=== PATIENT | female | born 1980 | race Caucasian/White ===

== ENCOUNTER 2020-08-13 06:13 | Day surgery (SDC) | payer OTHER, SELFPAY ==
[2020-08-13] VITALS (7 sets, daily range): BP systolic 108–147; BP diastolic 53–99; PULSE 57–82; RESP 16–17; TEMP 36.2–36.9; O2SAT 96–98; BMI 29.7
--- NOTE | 2020-08-13 06:49 | HO.ANESPROP2 ---
[facility] Social History Social History Advance Directives: No Advance Directives Information Provided: Yes Meds Allergies Allergy/AdvReac Type Severity Reaction Status Date / Time azithromycin [From Zithromax] Allergy Severe Hives Verified 08/13/20 06:47 Exam Exam Date and Time: August 13, 2020 0649 Airway Mallampati Class: II TM Dist: >3cm Neck ROM: Full Assessment and Plan Assessment Anesthesia Assessment: Anesthesia Plan Discussed and Chart Reviewed Final Anesthetic Review NPO: Yes ASA Class: II Final Preanesthetic Review: No Changes in Pt Med Stat, Meds/Allgs Chart Reviewed, Consent Obtained/Reviewed and Anes Risks/Benef Reviewed Patient Risk: Low Procedure Risk: Low Assessment/Block/Sedation in SS: Assess/Block/Sedation-SS Anesthetic Plan Anesthetic Plan: GA Disposition: Standard PACU
--- NOTE | 2020-08-13 07:26 | MHC.SHP ---
Pre-Procedural Eval Section A The patient is an INPATIENT: No Changes since office visit: Yes Changes in Medication and Yes Patient answered all questions; No Cold of Flu in the past 2 weeks and No New Medical Problems The History & Physical has been completed within 30 days and I have reviewed it.: Yes Section B Chief Complaint: depression Allergies: Allergies Allergy/AdvReac Type Severity Reaction Status Date / Time azithromycin [From Zithromax] Allergy Severe Hives Verified 08/13/20 06:47 Plan I have reviewed the history and physical and performed a pertinent physical examination on my patient. No changes have occurred unless specified.
--- NOTE | 2020-08-13 07:42 | HO.ECTPROC ---
ECT Procedure Note Diagnosis/Treatment Date of Service: 08/13/20 Diagnosis: Bipolar disorder Current Treatment Number: 1 Treatment: Series Interval Clinical Notes: pt severely depressed hopeless helpless anxious agitated pi see EXTRABANCA evky ECT Settings Device: THYMATRON DGx Program/Pulse Width: 0.25 Energy Percent: 100 Seizure Duration By EEG (in seconds): 44 Medications Administration General Anesthetic: Etomidate (14) Muscle Relaxant: Succinylcholine (100) Ancillary Medications Analgesics: Torodol - Pre ECT Anti-emetics: Zofran - Pre ECT Miscillaneous Medications: Propofol (post) and Flumazenil Airway Management Airway Management: Bag Mask Ventilation Treatment Recommendations No Changes Recommended: No change Notes: pretx anxiety cont tx series Pt Tolerated Procedure w/o Issue: Yes
== END 2020-08-13 09:04 | disposition home or self-care (01) ==
PROVIDERS: PCP Internal Medicine; Visit Provider Psychiatry & Neurology Psychiatry
PROC: (CPT 90870; principal; 2020-08-13 15:30)
DX: F31.5 Bipolar disorder, current episode depressed, severe, with psychotic features (principal)
CPT/HCPCS: 90870; J0330; J1885; J2405

== ENCOUNTER 2020-08-15 09:20 | Day surgery (SDC) | payer OTHER, SELFPAY ==
[2020-08-15 09:47] VITALS: BP 126/86; PULSE 67; RESP 20; TEMP 37.1; O2SAT 96; BMI 29.7
--- NOTE | 2020-08-15 10:55 | HO.ANESPROP2 ---
[facility] Past Medical History Medical History TOMMY (obstructive sleep apnea) Social History Social History Smoking Status: Former smoker Advance Directives: No Advance Directives Information Provided: Yes Recently lost weight without trying: No Meds Allergies Allergy/AdvReac Type Severity Reaction Status Date / Time azithromycin [From Zithromax] Allergy Severe Hives Verified 08/13/20 06:47 Exam Exam Date and Time: August 15, 2020 1055 Height,Weight and Vital Signs: Height 5 ft 7 in Weight 86.183 kg Last Vital Signs Temp 98.8 F 08/15/20 09:47 Pulse 67 08/15/20 09:47 Resp 20 08/15/20 09:47 BP 126/86 08/15/20 09:47 Pulse Ox 96 08/15/20 09:47 Airway Mallampati Class: II TM Dist: >3cm Neck ROM: Full Assessment and Plan Assessment Anesthesia Assessment: Anesthesia Plan Discussed and Chart Reviewed Final Anesthetic Review NPO: Yes ASA Class: II Final Preanesthetic Review: No Changes in Pt Med Stat, Meds/Allgs Chart Reviewed, Consent Obtained/Reviewed and Anes Risks/Benef Reviewed Patient Risk: Low Procedure Risk: Low Assessment/Block/Sedation in SS: Assess/Block/Sedation-SS Anesthetic Plan Anesthetic Plan: GA Disposition: Standard PACU
--- NOTE | 2020-08-15 10:56 | MHC.SHP ---
Pre-Procedural Eval Section A The patient is an INPATIENT: No Changes since office visit: No Cold of Flu in the past 2 weeks, No New Medical Problems, No Changes in Medication and No Patient answered all questions The History & Physical has been completed within 30 days and I have reviewed it.: Yes Section B Chief Complaint: depression Allergies: Allergies Allergy/AdvReac Type Severity Reaction Status Date / Time azithromycin [From Zithromax] Allergy Severe Hives Verified 08/13/20 06:47 Plan I have reviewed the history and physical and performed a pertinent physical examination on my patient. No changes have occurred unless specified.
--- NOTE | 2020-08-15 10:57 | HO.ECTPROC ---
ECT Procedure Note Diagnosis/Treatment Date of Service: 08/15/20 ECT Settings Device: THYMATRON DGx
[2020-08-15] MEDS: Lactated Ringers 1,000 ML 20 ML IVCONT (11:05)
--- NOTE | 2020-08-15 11:09 | HO.ECTPROC ---
ECT Procedure Note Diagnosis/Treatment Date of Service: 08/15/20 Diagnosis: Bipolar disorder Previous ECT Date: 08/13/20 Current Treatment Number: 2 Treatment: Series Interval Clinical Notes: The patient remains extremely anxious and dysphoric, agitated before the procedure. Reported mild headache after the last procedure. ECT Settings Device: THYMATRON DGx Electrode Placement: Bifrontal Program/Pulse Width: 0.25 Energy Percent: 100 Seizure Duration By EEG (in seconds): 37 Medications Administration General Anesthetic: Etomidate (14) Muscle Relaxant: Succinylcholine (100) Ancillary Medications Analgesics: Torodol - Pre ECT Anti-emetics: Zofran - Pre ECT Miscillaneous Medications: Propofol and Flumazenil Airway Management Airway Management: Bag Mask Ventilation Treatment Recommendations No Changes Recommended: No change Pt Tolerated Procedure w/o Issue: Yes
[2020-08-15 11:15] VITALS: BP 127/68; PULSE 69; RESP 16; TEMP 36.4; O2SAT 97
[2020-08-15 11:20] VITALS: BP 128/84; PULSE 77; RESP 18; O2SAT 96
[2020-08-15 11:25] VITALS: BP 137/105; PULSE 84; RESP 16; O2SAT 97
[2020-08-15 11:30] VITALS: BP 143/99; PULSE 82; RESP 16; O2SAT 96
[2020-08-15] MEDS: Acetaminophen 325 MG TABLET 650 MG PO (11:36)
[2020-08-15] MEDS: oxyCODONE HCl Immed Release 5 MG TABLET PO (11:37)
[2020-08-15 11:45] VITALS: BP 141/87; PULSE 77; RESP 18; TEMP 36.4; O2SAT 96
== END 2020-08-15 12:08 | disposition home or self-care (01) ==
PROVIDERS: Psychiatry & Neurology Psychiatry; PCP Internal Medicine; Visit Provider Psychiatry & Neurology Psychiatry
PROC: (CPT 90870; principal; 2020-08-15 12:00)
DX: F31.9 Bipolar disorder, unspecified (principal); G47.33 Obstructive sleep apnea (adult) (pediatric); Z79.899 Other long term (current) drug therapy; Z88.1 Allergy status to other antibiotic agents; Z87.891 Personal history of nicotine dependence
CPT/HCPCS: 90870; J0330; J1885; J2405

== ENCOUNTER 2020-08-20 06:03 | Day surgery (SDC) | payer OTHER, SELFPAY ==
[2020-08-20 07:13] VITALS: BP 121/78; PULSE 72; RESP 18; TEMP 36.6; O2SAT 99; BMI 29.7
--- NOTE | 2020-08-20 07:23 | MHC.SHP ---
Pre-Procedural Eval Section A The patient is an INPATIENT: No Changes since office visit: Yes Patient answered all questions; No Cold of Flu in the past 2 weeks, No New Medical Problems and No Changes in Medication The History & Physical has been completed within 30 days and I have reviewed it.: Yes Section B Chief Complaint: depression Allergies: Allergies Allergy/AdvReac Type Severity Reaction Status Date / Time azithromycin [From Zithromax] Allergy Severe Hives Verified 08/13/20 06:47 Plan I have reviewed the history and physical and performed a pertinent physical examination on my patient. No changes have occurred unless specified.
--- NOTE | 2020-08-20 08:07 | HO.ANESPROP2 ---
FORM[facility]LY [facility] Past Medical History Medical History TOMMY (obstructive sleep apnea) Social History Social History Smoking Status: Former smoker Advance Directives: No Advance Directives Information Provided: Yes Meds Allergies Allergy/AdvReac Type Severity Reaction Status Date / Time azithromycin [From Zithromax] Allergy Severe Hives Verified 08/13/20 06:47 Exam Exam Date and Time: August 20, 2020 0807 Height,Weight and Vital Signs: Height 5 ft 7 in Weight 86.183 kg Last Vital Signs Temp 97.9 F 08/20/20 07:13 Pulse 72 08/20/20 07:13 Resp 18 08/20/20 07:13 BP 121/78 08/20/20 07:13 Pulse Ox 99 08/20/20 07:13 Airway Mallampati Class: II TM Dist: >3cm Neck ROM: Full
[2020-08-20 08:30] VITALS: BP 124/84; PULSE 85; RESP 17; TEMP 36.9; O2SAT 97
--- NOTE | 2020-08-20 08:32 | HO.ECTPROC ---
ECT Procedure Note Diagnosis/Treatment Date of Service: 08/20/20 Diagnosis: Bipolar disorder Previous ECT Date: 08/15/20 Current Treatment Number: 3 Treatment: Series Interval Clinical Notes: Patient remains quite depressed anxious agitated had a very difficult time waiting for treatment gave consent for tx After anesthesia and flumazenil became quite agitated distraught trying to stop treatment but was in a delirious state ECT Settings Device: THYMATRON DGx Electrode Placement: Bifrontal Program/Pulse Width: 0.25 Energy Percent: 100 Seizure Duration By EEG (in seconds): 28 Medications Administration General Anesthetic: Etomidate (14) Muscle Relaxant: Succinylcholine (100) Ancillary Medications Analgesics: Torodol - Pre ECT Anti-emetics: Zofran - Pre ECT Miscillaneous Medications: Propofol, Midazolam and Flumazenil Airway Management Airway Management: Bag Mask Ventilation Treatment Recommendations Notes: Do not give flumazenil prior to time and date patient should have 1st ECT the morning patient was sent oxycodone for headache pain post ECT we which she had been given previously. Patient was given clonazepam 0.5 mg post ECT did not do well awaiting the and being the 3rd treatment did not do well having flumazenil prior to the time and date became severely anxious distraught trying to tear off all material prior to to treatment in severely agitated distraught delirious state post medication Call placed to patient later in the day to check on her status was unable to reach she was stable prior to discharge
[2020-08-20 08:35] VITALS: BP 135/73; PULSE 94; RESP 16; O2SAT 98
[2020-08-20 08:40] VITALS: BP 149/92; PULSE 96; RESP 17; O2SAT 98
[2020-08-20 08:45] VITALS: BP 142/97; PULSE 91; RESP 17; O2SAT 98
[2020-08-20] MEDS: clonazePAM 1 MG TABLET 0.5 MG PO (08:50)
[2020-08-20 09:00] VITALS: BP 138/89; PULSE 77; RESP 17; TEMP 36.8; O2SAT 97
== END 2020-08-20 09:37 | disposition home or self-care (01) ==
PROVIDERS: PCP Internal Medicine; Visit Provider Psychiatry & Neurology Psychiatry
PROC: (CPT 90870; principal; 2020-08-20 08:00)
DX: F31.9 Bipolar disorder, unspecified (principal); Z79.899 Other long term (current) drug therapy; Z88.1 Allergy status to other antibiotic agents; Z87.891 Personal history of nicotine dependence
CPT/HCPCS: 90870; J0330; J1885; J2250; J2405

== ENCOUNTER 2020-08-25 06:03 | Day surgery (SDC) | payer OTHER, SELFPAY ==
[2020-08-25] VITALS (7 sets, daily range): BP systolic 117–158; BP diastolic 83–96; PULSE 80–101; RESP 16–20; TEMP 36.6–37.1; O2SAT 97–99; BMI 29.7
--- NOTE | 2020-08-25 06:59 | HO.ECTPROC ---
ECT Procedure Note Diagnosis/Treatment Date of Service: 08/25/20 Diagnosis: Bipolar disorder Previous ECT Date: 08/20/20 Current Treatment Number: 4 Interval Clinical Notes: Patient remains anxious and depressed, she reported headaches on her llast ECT. She remembered having a panic attack while she had the oxygen mask. ECT Settings Device: THYMATRON DGx Electrode Placement: Bifrontal Program/Pulse Width: 0.25 Energy Percent: 100 Seizure Duration By EEG (in seconds): 65 Medications Administration General Anesthetic: Etomidate (14 and later 6) Muscle Relaxant: Succinylcholine (100) Ancillary Medications Analgesics: Torodol - Pre ECT Anti-emetics: Zofran - Pre ECT Miscillaneous Medications: Propofol and Midazolam Airway Management Airway Management: Bag Mask Ventilation Treatment Recommendations No Changes Recommended: No change Pt Tolerated Procedure w/o Issue: Yes
--- NOTE | 2020-08-25 08:24 | P.CONAN_ITS ---
[facility] Past Medical History Medical History TOMMY (obstructive sleep apnea) Social History Social History Smoking Status: Never smoker Meds Allergies Allergy/AdvReac Type Severity Reaction Status Date / Time azithromycin [From Zithromax] Allergy Severe Hives Verified 08/13/20 06:47 Active Medications: Current Medications Generic Name Dose Route Start Last Admin Trade Name Lawrence PRN Reason Stop Dose Admin Acetaminophen 650 mg 08/25/20 08:21 Acetaminophen 325 Mg Tablet PO 08/25/20 08:22 ONCE ONE Oxycodone HCl 5 mg 08/25/20 08:21 Oxycodone Hcl Immed Release 5 Mg Tablet PO 08/25/20 08:22 ONCE ONE Exam Exam Date and Time: August 25, 2020 0824 Height,Weight and Vital Signs: Height 5 ft 7 in Weight 86.183 kg Last Vital Signs Temp 98.7 F 08/25/20 07:59 Pulse 82 08/25/20 08:15 Resp 17 08/25/20 08:15 BP 146/94 H 08/25/20 08:15 Pulse Ox 99 08/25/20 08:15 Airway Mallampati Class: II TM Dist: >3cm Neck ROM: Full Heart: RRR Lungs: CTA
[2020-08-25] MEDS: Acetaminophen 325 MG TABLET 650 MG PO (08:27)
[2020-08-25] MEDS: oxyCODONE HCl Immed Release 5 MG TABLET PO (08:27)
== END 2020-08-25 08:49 | disposition home or self-care (01) ==
PROVIDERS: PCP Internal Medicine; Visit Provider Psychiatry & Neurology Psychiatry
PROC: (CPT 90870; principal; 2020-08-25 08:00)
DX: F31.9 Bipolar disorder, unspecified (principal); G47.33 Obstructive sleep apnea (adult) (pediatric); Z88.1 Allergy status to other antibiotic agents
CPT/HCPCS: 90870; J0330; J1885; J2250; J2405

== ENCOUNTER 2020-08-27 06:09 | Day surgery (SDC) | payer OTHER, SELFPAY ==
[2020-08-27] VITALS (7 sets, daily range): BP systolic 129–159; BP diastolic 77–87; PULSE 68–99; RESP 16–17; TEMP 36.3–37.1; O2SAT 97–100; BMI 29.7
[2020-08-27 06:35] LABS: UPreg QC Valid YES; Urine Pregnancy NEGATIVE (NEGATIVE)
--- NOTE | 2020-08-27 07:10 | HO.ANESPROP2 ---
[facility] Past Medical History Medical History TOMMY (obstructive sleep apnea) Social History Social History Smoking Status: Never smoker Advance Directives: No Advance Directives Information Provided: Yes Meds Allergies Allergy/AdvReac Type Severity Reaction Status Date / Time azithromycin [From Zithromax] Allergy Severe Hives Verified 08/13/20 06:47 Exam Exam Date and Time: August 27, 2020 0710 Height,Weight and Vital Signs: Height 5 ft 7 in Weight 86.183 kg Last Vital Signs Temp 97.4 F 08/27/20 06:31 Pulse 99 08/27/20 06:31 Resp 17 08/27/20 06:31 BP 129/80 08/27/20 06:31 Pulse Ox 97 08/27/20 06:31 Pertinent Lab Results Pertinent Lab Results: Laboratory Tests 08/27/20 06:27 Urine Test NEGATIVE Airway Mallampati Class: II TM Dist: >3cm Neck ROM: Full Heart: RRR Lungs: CTA
--- NOTE | 2020-08-27 07:24 | HO.ECTPROC ---
ECT Procedure Note Diagnosis/Treatment Date of Service: 08/27/20 Diagnosis: Bipolar disorder Previous ECT Date: 08/25/20 Current Treatment Number: 5 Treatment: Series Interval Clinical Notes: pt less labile remains anxious ECT Settings Device: THYMATRON DGx Electrode Placement: Bifrontal Program/Pulse Width: 0.25 Energy Percent: 100 Seizure Duration By EEG (in seconds): 35 Medications Administration General Anesthetic: Etomidate (14 plus 6) Muscle Relaxant: Succinylcholine (100) Ancillary Medications Analgesics: Torodol - Pre ECT Anti-emetics: Zofran - Pre ECT Miscillaneous Medications: Propofol, Midazolam and Flumazenil (pretx) Airway Management Airway Management: Bag Mask Ventilation Treatment Recommendations No Changes Recommended: No change Notes: cont tx series Pt Tolerated Procedure w/o Issue: Yes
== END 2020-08-27 08:39 ==
LOC: HO.SSS 06:09
PROVIDERS: Anesthesiology; PCP Internal Medicine; Visit Provider Psychiatry & Neurology Psychiatry
PROC: (CPT 90870; principal; 2020-08-27 07:30)
DX: F31.9 Bipolar disorder, unspecified (principal); F41.9 Anxiety disorder, unspecified; G47.33 Obstructive sleep apnea (adult) (pediatric); Z88.0 Allergy status to penicillin
CPT/HCPCS: 81025; 90870; J0330; J1885; J2250; J2405

== ENCOUNTER 2020-08-29 06:06 | Day surgery (SDC) | payer OTHER, SELFPAY ==
[2020-08-29 06:34] VITALS: BP 116/77; PULSE 94; RESP 20; TEMP 36.6; O2SAT 97; BMI 29.7
--- NOTE | 2020-08-29 07:26 | P.CONAN_ITS ---
FORM[facility]LY [facility], [facility] Past Medical History Medical History TOMMY (obstructive sleep apnea) Social History Social History Smoking Status: Never smoker Advance Directives: No Advance Directives Information Provided: Yes Meds Allergies Allergy/AdvReac Type Severity Reaction Status Date / Time azithromycin [From Zithromax] Allergy Severe Hives Verified 08/13/20 06:47 Exam Exam Date and Time: August 29, 2020 0726 Height,Weight and Vital Signs: Height 5 ft 7 in Weight 86.183 kg Last Vital Signs Temp 97.9 F 08/29/20 06:34 Pulse 94 08/29/20 06:34 Resp 20 08/29/20 06:34 BP 116/77 08/29/20 06:34 Pulse Ox 97 08/29/20 06:34 Airway Mallampati Class: II TM Dist: >3cm Neck ROM: Full Assessment and Plan Assessment Anesthesia Assessment: Anesthesia Plan Discussed and Chart Reviewed Final Anesthetic Review NPO: Yes ASA Class: II Final Preanesthetic Review: No Changes in Pt Med Stat, Meds/Allgs Chart Reviewed, Consent Obtained/Reviewed and Anes Risks/Benef Reviewed Patient Risk: Low Procedure Risk: Low Assessment/Block/Sedation in SS: Assess/Block/Sedation-SS Anesthetic Plan Anesthetic Plan: GA Disposition: Standard PACU
--- NOTE | 2020-08-29 07:36 | HO.ECTPROC ---
ECT Procedure Note Diagnosis/Treatment Date of Service: 08/29/20 Diagnosis: Bipolar disorder Previous ECT Date: 08/27/20 Current Treatment Number: 6 Treatment: Series Interval Clinical Notes: less depressed tolerating procedure ECT Settings Device: THYMATRON DGx Electrode Placement: Bifrontal Program/Pulse Width: 0.25 Seizure Duration By EEG (in seconds): 27 Medications Administration General Anesthetic: Etomidate (16 no added doses needed ) Muscle Relaxant: Succinylcholine (100) Ancillary Medications Analgesics: Torodol - Pre ECT Anti-emetics: Zofran - Pre ECT Miscillaneous Medications: Flumazenil Airway Management Airway Management: Bag Mask Ventilation Treatment Recommendations No Changes Recommended: No change Notes: pt will speak to dr diaz regarding further ect electrolodes put on post induction Pt Tolerated Procedure w/o Issue: Yes
[2020-08-29 07:40] VITALS: BP 133/89; PULSE 99; RESP 16; TEMP 36.6; O2SAT 97
[2020-08-29 07:45] VITALS: BP 131/85; PULSE 94; RESP 17; O2SAT 96
[2020-08-29 07:50] VITALS: BP 131/87; PULSE 95; RESP 17; O2SAT 98
[2020-08-29 07:56] VITALS: BP 131/93; PULSE 92; RESP 17; O2SAT 96
[2020-08-29 08:11] VITALS: BP 140/91; PULSE 87; RESP 17; TEMP 36.6; O2SAT 97
== END 2020-08-29 09:10 | disposition home or self-care (01) ==
PROVIDERS: PCP Internal Medicine; Visit Provider Psychiatry & Neurology Psychiatry
PROC: (CPT 90870; principal; 2020-08-29 08:00)
DX: F31.9 Bipolar disorder, unspecified (principal); G47.33 Obstructive sleep apnea (adult) (pediatric); Z88.1 Allergy status to other antibiotic agents; Z87.891 Personal history of nicotine dependence
CPT/HCPCS: 90870; J0330; J1885; J2250; J2405

== ENCOUNTER 2021-01-01 14:02 | Outpatient (REF) | payer OTHER, SELFPAY ==
--- NOTE | 2021-01-01 14:10 | ECG_ITS ---
Test Reason : preop Blood Pressure : / mmHG Vent. Rate : 093 BPM Atrial Rate : 093 BPM P-R Int : 144 ms QRS Dur : 078 ms QT Int : 360 ms P-R-T Axes : 069 080 036 degrees QTc Int : 447 ms Normal sinus rhythm Normal ECG When compared with ECG of 18-AUG-2009 21:43, T wave inversion now evident in Inferior leads Referred By: Jamil Ashford Electronically Signed By:ANKUSH MILLER
[2021-01-01 14:55] LABS: MANUAL DIFF FLAG NO
[2021-01-01 15:00] LABS: Basophils Absolute Auto 0.1 X10*3/uL (0.0-0.2); Basophils Percent Auto 0.7 % (0-2); Eosinophils Absolute Auto 0.4 X10*3/uL (0.0-0.4); Eosinophils Percent Auto 5.2 % (0-4); Hematocrit 40.3 % (37-47); Hemoglobin 13.4 g/dl (12.0-16.0); Imm Gran Abs Auto 0.03 X10*3/uL (0.00-0.03); Imm Gran Pct Auto 0.4 % (0.0-0.4); Lymphocytes Absolute Auto 2.2 X10*3/uL (1.2-4.9); Lymphocytes Percent Auto 26.3 % (20-40); Mean Corpuscular HGB Conc 33.3 g/dl (31.0-35.0); Mean Corpuscular Hemoglobin 30.6 pg (27.0-33.0); Monocytes Absolute Auto 0.8 X10*3/uL (0.1-1.2); Monocytes Percent Auto 9.9 % (2-11); Neutrophils Absolute Auto 4.8 X10*3/uL (2.0-8.3); Neutrophils Percent Auto 57.5 % (45-73); Platelet Count 317 X10*3/uL (160-400); Red Blood Count 4.38 X10*6/uL (4.20-5.50); Red Cell Distribution Width 12.9 % (11.0-16.0); White Blood Count 8.3 X10*3/uL (4.8-10.8)
[2021-01-01 15:12] LABS: Lithium 0.76 mmol/L (0.60-1.20)
[2021-01-01 15:23] LABS: Anion Gap 13 (12-20); Blood Urea Nitrogen 15 mg/dL (9-16); Calcium 10.5 mg/dL (8.4-10.2); Carbon Dioxide 23 mmol/L (22-29); Chloride 107 mmol/L (96-108); Estimated Glomerular Filt Rate > 60; Glucose Random 100 mg/dL (60-115); Potassium 3.9 mmol/L (3.3-5.1); Sodium 139 mmol/L (135-145)
[2021-01-01 15:43] LABS: Free T4 (Free Thyroxine) 0.81 ng/dL (0.71-1.85); Thyroid Stimulating Hormone 1.24 uIU/mL (0.32-4.0)
[2021-01-02 14:25] LABS: Triiodothyronine T3 Free 2.6 pg/mL (2.3-4.2)
== END 2021-01-01 14:03 | disposition home or self-care (01) ==
LOC: HO.LAB 14:02
PROVIDERS: Absent Provider Internal Medicine; PCP Internal Medicine; Visit Provider Psychiatry & Neurology Psychiatry
DX: Z01.818 Encounter for other preprocedural examination (principal); F31.9 Bipolar disorder, unspecified; F43.10 Post-traumatic stress disorder, unspecified
CPT/HCPCS: 36415; 80048; 80178; 84439; 84443; 84481; 85025; 93005